=== PATIENT | female | born 1980 | race African-American/Black ===

== ENCOUNTER 2017-04-03 09:34 | Emergency (ER) | payer MEDICAID ==
[~2017-04-03] VITALS: Ht 172.7 cm; Wt 98.8 kg
[~2017-04-03 09:34] MED LIST: ALBU6.7H INH; AMIT25TA9 PO; ATEN-42 PO; HYDR-3927 PO; Ibuprofen PO; LEVO500T15 PO; LISI-604 PO; OMEP20CA10 PO; RIZA10TA26 PO
[2017-04-03] MEDS ORDERED: SODIUM CHLORIDE 0.9% 1,000 ML IV ONE ×2 (11:45→17:45)
[2017-04-03 12:13] LABS: CLARITY URINE CLEAR (CLEAR); COLOR URINE YELLOW (YELLOW); GLUCOSE URINE NEGATIVE (NEGATIVE); KETONES URINE TRACE (NEGATIVE); LEUKOCYTE ESTERASE URINE NEGATIVE (NEGATIVE); NITRITE URINE NEGATIVE (NEGATIVE); OCCULT BLOOD URINE 1+ (NEGATIVE); PROTEIN URINE NEGATIVE (NEGATIVE); SPECIFIC GRAVITY URINE 1.022 (1.005-1.030); UROBILINOGEN URINE 0.2 E.U./dL (0.2-1.0)
[2017-04-03] MEDS ORDERED: MORPHINE SULFATE 4 MG/ML CPJ (NOT FOR IM USE) IV ONE ×3 (12:30→18:45)
[2017-04-03 12:33] LABS: BASOPHILS % 1.3 % (0.0-2.0); EOSINOPHILS % 1.5 % (0.0-5.0); HEMATOCRIT. 32.2 % (36.0-48.0); HEMOGLOBIN. 10.5 g/dL (12.0-16.0); LYMPHOCYTES % 43.9 % (20.0-50.0); MEAN CORPUSCULAR HEMOGLOBIN 27.3 pg (28.0-32.0); MEAN CORPUSCULAR VOLUME 83.3 fL (81.0-99.0); MEAN PLATELET VOLUME 8.5 fl (7.4-10.4); MONOCYTES % 11.2 % (2.0-8.0); NEUTROPHILS % 42.1 % (40.0-76.0); PLATELET 296 x1000/uL (130-400); RED BLOOD CELL COUNT 3.87 mill/uL (4.2-5.4); RED CELL DISTRIBUTION WIDTH 15.5 % (11.6-14.6)
[2017-04-03 12:41] LABS: PARTIAL THROMBOPLASTIN TIME 28.2 sec (24.0-34.0); PROTHROMBIN TIME 10.7 sec
[2017-04-03 12:42] LABS: CARBON DIOXIDE 30 mEq/L (21-32); CHLORIDE 107 mEq/L (98-107)
[2017-04-03] MEDS ORDERED: ONDANSETRON HCL 4MG/2ML VIAL IV ONE ×2 (12:45→18:45)
[2017-04-03 12:52] LABS: HCG SCREEN NEGATIVE
[2017-04-03] MEDS ORDERED: VANCOMYCIN 1 G PREMIX 200 ML IV SCH (17:45)
[2017-04-03] MEDS ORDERED: PIPERACILLIN/TAZOBACTAM 3.375GM/50ML PREMIX IV ONE (17:45)
[2017-04-03] MEDS ORDERED: KETOROLAC 30MG/ML VIAL IV ONE (18:45)
[2017-04-03 21:05] VITALS: BP 135/85
== END 2017-04-03 21:05 | disposition home or self-care (01) ==
LOC: ER 12:53
DX: G06.2 Extradural and subdural abscess, unspecified (principal); M32.9 Systemic lupus erythematosus, unspecified; I10 Essential (primary) hypertension; Z90.89 Acquired absence of other organs
CPT/HCPCS: 36415; 72158; 80048; 81001; 84703; 85025; 85610; 85730; 87040; 96361; 96374; 96375; 96376; 99285; J1885; J2270; J2405; J2543; J3370; J7030

== ENCOUNTER 2017-04-23 20:47 | Emergency (ER) | payer MEDICAID ==
[~2017-04-23] VITALS: Ht 172.7 cm; Wt 82.0 kg
[~2017-04-23 20:47] MED LIST changes: -HYDR-3927 PO; +HYDR-4001 PO; -LEVO500T15 PO; +LEVO500T2 PO
[2017-04-23] MEDS ORDERED: SODIUM CHLORIDE 0.9% 1,000 ML IV ONE (21:26)
[2017-04-23] MEDS ORDERED: ONDANSETRON HCL 4MG/2ML VIAL IV STA (21:26)
[2017-04-23] MEDS ORDERED: KETOROLAC 30MG/ML VIAL IV ONE (21:30)
[2017-04-23 21:58] LABS: BASOPHILS % 1.2 % (0.0-2.0); EOSINOPHILS % 0.6 % (0.0-5.0); HEMATOCRIT. 34.2 % (36.0-48.0); HEMOGLOBIN. 11.3 g/dL (12.0-16.0); LYMPHOCYTES % 39.9 % (20.0-50.0); MEAN CORPUSCULAR HEMOGLOBIN 27.2 pg (28.0-32.0); MEAN CORPUSCULAR VOLUME 82.1 fL (81.0-99.0); MEAN PLATELET VOLUME 8.8 fl (7.4-10.4); MONOCYTES % 6.7 % (2.0-8.0); NEUTROPHILS % 51.6 % (40.0-76.0); PLATELET 339 x1000/uL (130-400); RED BLOOD CELL COUNT 4.16 mill/uL (4.2-5.4); RED CELL DISTRIBUTION WIDTH 15.2 % (11.6-14.6)
[2017-04-23 21:59] LABS: PROTHROMBIN TIME 10.8 sec
[2017-04-23 22:00] LABS: CARBON DIOXIDE 25 mEq/L (21-32); CHLORIDE 105 mEq/L (98-107)
[2017-04-23 22:02] LABS: ETHANOL BLOOD < 10 mg/dL
[2017-04-23] MEDS ORDERED: POTASSIUM CHLORIDE 20MEQ TABLET SR PO ONE (22:45)
[2017-04-23] MEDS ORDERED: LORAZEPAM 0.5MG TABLET PO ONE (22:45)
[2017-04-24 05:45] VITALS: BP 143/89
[2017-09-02] MEDS ORDERED: FERR325T6 PO (22:11)
[2017-09-02] MEDS ORDERED: ATEN50TA PO (22:11)
[2017-09-02] MEDS ORDERED: GABA-529 PO (22:11)
[2017-09-02] MEDS ORDERED: CHOL20004 PO (22:11)
[2017-09-02] MEDS ORDERED: PANT40TA4 PO (22:14)
[2017-09-02] MEDS ORDERED: DIAZ10TA4 PO (22:14)
[2017-09-02] MEDS ORDERED: HYDR4TAB4 PO (22:14)
[2017-09-02] MEDS ORDERED: LORA10TA7 PO (22:15)
== END 2017-04-24 06:04 | disposition home or self-care (01) ==
LOC: ER 22:29
DX: R10.9 Unspecified abdominal pain (principal); M54.9 Dorsalgia, unspecified; E87.6 Hypokalemia; M32.9 Systemic lupus erythematosus, unspecified; I10 Essential (primary) hypertension; R11.2 Nausea with vomiting, unspecified; G89.29 Other chronic pain; Z98.890 Other specified postprocedural states
CPT/HCPCS: 36415; 74176; 80053; 81025; 85025; 85610; 93005; 96361; 96374; 96375; 99285; G0482; J1885; J2405; J7030

== ENCOUNTER 2018-04-11 10:02 | Emergency (ER) | payer MEDICAID ==
[~2018-04-11] VITALS: Ht 172.7 cm; Wt 78.0 kg
[~2018-04-11 10:02] MED LIST changes: -ATEN-42 PO; +ATEN50TA PO; +CHOL20004 PO; +DIAZ10TA4 PO; +FERR325T6 PO; +GABA-529 PO; +HYDR4TAB4 PO; +LORA10TA7 PO; +PANT40TA4 PO
[2018-04-11] MEDS ORDERED: HYDROCODONE/ACETAMINOPHEN 5/325MG TABLET PO ONE (12:15)
[2018-04-11 12:34] VITALS: BP 129/89
== END 2018-04-11 15:52 | disposition home or self-care (01) ==
LOC: ER 15:07
DX: L03.312 Cellulitis of back [any part except buttock and flank] (principal); J45.909 Unspecified asthma, uncomplicated; M32.9 Systemic lupus erythematosus, unspecified; I10 Essential (primary) hypertension; F17.200 Nicotine dependence, unspecified, uncomplicated; F12.10 Cannabis abuse, uncomplicated; Z98.1 Arthrodesis status
CPT/HCPCS: 99283

== ENCOUNTER 2018-04-14 11:55 | Emergency (ER) | payer MEDICAID ==
[~2018-04-14] VITALS: Ht 162.6 cm; Wt 74.0 kg
[2018-04-14] MEDS ORDERED: BACITRACIN ZINC OINT UDPKT TOP ONE (12:30)
[2018-04-14] MEDS ORDERED: LIDOCAINE HCL/PF 1% 10 MG/ML 30ML VIAL INFIL ONE (12:45)
[2018-04-14] MEDS ORDERED: LIDOCAINE HCL/PF 1% 10 MG/ML 5ML VIAL IJ ONE (14:00)
[2018-04-14] MEDS ORDERED: HYDROCODONE/APAP 7.5/325MG 1 TAB TABLET PO ONE (14:45)
[2018-04-14 16:35] LABS: BASOPHILS % 0.3 % (0.0-2.0); EOSINOPHILS % 2.4 % (0.0-5.0); HEMATOCRIT. 36.1 % (36.0-48.0); HEMOGLOBIN. 11.8 g/dL (12.0-16.0); LYMPHOCYTES % 26.4 % (20.0-50.0); MEAN CORPUSCULAR HEMOGLOBIN 27.5 pg (28.0-32.0); MEAN CORPUSCULAR VOLUME 84.3 fL (81.0-99.0); MONOCYTES % 10.2 % (2.0-8.0); NEUTROPHILS % 60.7 % (40.0-76.0); PLATELET 332 x1000/uL (130-400); RED BLOOD CELL COUNT 4.29 mill/uL (4.2-5.4); RED CELL DISTRIBUTION WIDTH 14.9 % (11.6-14.6)
[2018-04-14 16:39] LABS: CHLORIDE 102 mEq/L (98-107)
[2018-04-14 16:43] LABS: HCG SCREEN NEGATIVE
[2018-04-14] MEDS ORDERED: IBUPROFEN 600MG TABLET PO ONE (19:30)
[2018-04-14 19:32] VITALS: BP 130/78
== END 2018-04-14 19:46 | disposition home or self-care (01) ==
LOC: ER 12:54
DX: L02.212 Cutaneous abscess of back [any part, except buttock and flank] (principal); I10 Essential (primary) hypertension; M32.9 Systemic lupus erythematosus, unspecified; J45.909 Unspecified asthma, uncomplicated; Z79.899 Other long term (current) drug therapy
CPT/HCPCS: 10060; 36415; 72128; 80048; 84703; 85025; 99285; J3490; X7700; Z7610

== ENCOUNTER 2018-07-23 19:05 | Emergency (ER) | payer MEDICAID ==
[~2018-07-23] VITALS: Ht 175.3 cm; Wt 77.0 kg
[2018-07-23] MEDS ORDERED: KETOROLAC 15MG/ML VIAL IM ONE (22:30)
[2018-07-23 22:52] VITALS: BP 131/70
== END 2018-07-23 22:57 | disposition home or self-care (01) ==
LOC: ER 19:05
DX: M62.838 Other muscle spasm (principal)
CPT/HCPCS: 96372; 99283; J1885

== ENCOUNTER 2018-08-05 16:51 | Inpatient (IN) | payer MEDICAID ==
[~2018-08-05] VITALS: Ht 167.6 cm; Wt 81.6 kg
[2018-08-05] MEDS ORDERED: MORPHINE SULFATE 4 MG/ML CPJ (NOT FOR IM USE) IV STA ×2 (18:15→23:25)
[2018-08-05] MEDS ORDERED: ONDANSETRON HCL 4MG/2ML INJ IV STA ×2 (18:15→23:25)
[2018-08-05] MEDS ORDERED: ACETAMINOPHEN 325MG TABLET PO STA (18:15)
[2018-08-05] MEDS ORDERED: SODIUM CHLORIDE 0.9% 1000ML BAG (SEPSIS BOLUS) IV ONE (18:15)
[2018-08-05] MEDS ORDERED: NITROGLYCERIN 0.4MG TABLET SL SL PRN (18:15)
[2018-08-05] MEDS ORDERED: LEVOFLOXACIN 750MG PREMIX 150 ML IV ONE (18:15)
[2018-08-05] MEDS ORDERED: ASPIRIN 81MG TABLET PO ONE (18:15)
[2018-08-05 20:26] LABS: HEMATOCRIT. 34.7 % (36.0-48.0); HEMOGLOBIN. 11.1 g/dL (12.0-16.0); MEAN CORPUSCULAR HEMOGLOBIN 27.7 pg (28.0-32.0); MEAN CORPUSCULAR VOLUME 86.8 fL (81.0-99.0); MEAN PLATELET VOLUME 8.7 fl (7.4-10.4); PLATELET 314 x1000/uL (130-400); RED CELL DISTRIBUTION WIDTH 14.6 % (11.6-14.6)
[2018-08-05 20:35] LABS: CHLORIDE 108 mEq/L (98-107); D-DIMER 0.46 mg/L FEU (<0.50); INR 1.1; PARTIAL THROMBOPLASTIN TIME 28.4 sec (23.4-31.0); PROTHROMBIN TIME 10.6 sec (9.1-11.1)
[2018-08-05 20:38] LABS: HCG SCREEN NEGATIVE
[2018-08-05 20:41] LABS: PLATELET ESTIMATE NORMAL
[2018-08-05 21:22] LABS: CLARITY URINE CLEAR (CLEAR); COLOR URINE YELLOW (YELLOW); KETONES URINE NEGATIVE (NEGATIVE); LEUKOCYTE ESTERASE URINE TRACE (NEGATIVE); NITRITE URINE NEGATIVE (NEGATIVE); OCCULT BLOOD URINE 3+ (NEGATIVE); PROTEIN URINE NEGATIVE (NEGATIVE); SPECIFIC GRAVITY URINE 1.012 (1.005-1.030); UROBILINOGEN URINE 0.2 E.U./dL (0.2-1.0)
[2018-08-05] MEDS ORDERED: MORPHINE SULFATE 4 MG/ML CPJ (NOT FOR IM USE) IV ONE (21:30)
[2018-08-05] MEDS ORDERED: IOHEXOL-350 100 ML BOTTLE ONE (22:11)
[2018-08-06 03:16] VITALS: BP 149/92
[2018-08-06 04:00] VITALS: BP 130/87
[2018-08-06] MEDS ORDERED: ALBUTEROL (0.083%) 2.5MG/3ML NEB HHN PRN (04:45)
[2018-08-06 06:00] VITALS: BP 134/79
[2018-08-06 06:33] LABS: BASOPHILS % 0.2 % (0.0-2.0); EOSINOPHILS % 0.3 % (0.0-5.0); HEMATOCRIT. 32.5 % (36.0-48.0); HEMOGLOBIN. 10.6 g/dL (12.0-16.0); LYMPHOCYTES % 11.9 % (20.0-50.0); MEAN CORPUSCULAR HEMOGLOBIN 28.2 pg (28.0-32.0); MEAN CORPUSCULAR VOLUME 86.6 fL (81.0-99.0); MEAN PLATELET VOLUME 8.7 fl (7.4-10.4); MONOCYTES % 6.2 % (2.0-8.0); NEUTROPHILS % 81.4 % (40.0-76.0); PLATELET 296 x1000/uL (130-400); RED BLOOD CELL COUNT 3.75 mill/uL (4.2-5.4); RED CELL DISTRIBUTION WIDTH 14.8 % (11.6-14.6)
[2018-08-06 07:01] LABS: CHLORIDE 106 mEq/L (98-107)
[2018-08-06 07:34] LABS: HDL CHOLESTEROL 55 mg/dL (40-59); LDL CHOLESTEROL 99 mg/dL (5-100)
[2018-08-06 08:00] VITALS: BP 128/89
[2018-08-06] MEDS: HYDROCODONE/ACETAMINOPHEN 10/325MG TABLET PO PRN ×2 (08:25→20:23)
[2018-08-06] MEDS: HYDROXYCHLOROQUINE SULFATE 200MG TABLET PO SCH (08:40)
[2018-08-06] MEDS: CHOLECALCIFEROL (D3) 1000 UNIT TABLET PO SCH (08:40)
[2018-08-06] MEDS: CALCIUM CARBONATE 1250MG TABLET (500MG ELEMENTAL CALCIUM) PO SCH ×2 (08:40→17:03)
[2018-08-06] MEDS: METOPROLOL TARTRATE 50MG TABLET PO SCH ×2 (08:41→20:24)
[2018-08-06] MEDS: ASPIRIN 81MG TABLET PO SCH (08:42)
[2018-08-06] MEDS: LISINOPRIL 20MG TABLET PO SCH ×2 (09:00→20:23)
[2018-08-06] MEDS: NITROGLYCERIN OINT 1GM/INCH UDPKT TD SCH ×3 (10:18→17:03)
[2018-08-06] MEDS: TIZANIDINE HCL 4MG TABLET PO PRN ×2 (10:41→20:31)
[2018-08-06 12:00] VITALS: BP 114/79
[2018-08-06] MEDS: LEVOFLOXACIN 500MG PREMIX 100 ML IV SCH (12:15)
[2018-08-06 16:00] VITALS: BP 106/73
[2018-08-06] MEDS: AMITRIPTYLINE 25MG TABLET PO SCH (20:23)
[2018-08-06] MEDS: BACLOFEN 10MG TABLET PO SCH (20:27)
[2018-08-06] MEDS ORDERED: ZOLPIDEM TARTRATE 5MG TABLET PO PRN (21:00)
[2018-08-06] MEDS ORDERED: LISINOPRIL 20MG TABLET PO SCH (21:00)
[2018-08-06] MEDS ORDERED: AMITRIPTYLINE 25MG TABLET PO SCH (21:00)
[2018-08-07 06:30] LABS: BASOPHILS % 0.3 % (0.0-2.0); EOSINOPHILS % 1.6 % (0.0-5.0); HEMATOCRIT. 31.8 % (36.0-48.0); HEMOGLOBIN. 10.5 g/dL (12.0-16.0); LYMPHOCYTES % 20.3 % (20.0-50.0); MEAN CORPUSCULAR HEMOGLOBIN 28.5 pg (28.0-32.0); MEAN CORPUSCULAR VOLUME 86.6 fL (81.0-99.0); MEAN PLATELET VOLUME 8.6 fl (7.4-10.4); NEUTROPHILS % 71.8 % (40.0-76.0); PLATELET 294 x1000/uL (130-400); RED BLOOD CELL COUNT 3.68 mill/uL (4.2-5.4); RED CELL DISTRIBUTION WIDTH 14.6 % (11.6-14.6)
[2018-08-07 07:16] LABS: CHLORIDE 106 mEq/L (98-107)
[2018-08-07 08:04] VITALS: BP 123/83
[2018-08-07] MEDS: ASPIRIN 81MG TABLET PO SCH (10:09)
[2018-08-07] MEDS: CALCIUM CARBONATE 1250MG TABLET (500MG ELEMENTAL CALCIUM) PO SCH ×2 (10:10→18:05)
[2018-08-07] MEDS: METOPROLOL TARTRATE 50MG TABLET PO SCH ×2 (10:10→20:22)
[2018-08-07] MEDS: HYDROXYCHLOROQUINE SULFATE 200MG TABLET PO SCH (10:10)
[2018-08-07] MEDS: CHOLECALCIFEROL (D3) 1000 UNIT TABLET PO SCH (10:11)
[2018-08-07] MEDS: NITROGLYCERIN OINT 1GM/INCH UDPKT TD SCH ×3 (10:11→18:05)
[2018-08-07] MEDS: LISINOPRIL 20MG TABLET PO SCH ×2 (10:11→20:32)
[2018-08-07 12:09] VITALS: BP 124/83
[2018-08-07] MEDS: TIZANIDINE HCL 4MG TABLET PO PRN ×2 (12:38→20:33)
[2018-08-07] MEDS: LEVOFLOXACIN 500MG PREMIX 100 ML IV SCH (12:38)
[2018-08-07] MEDS: MORPHINE SULFATE 4 MG/ML CPJ (NOT FOR IM USE) IV PRN ×2 (12:41→20:21)
[2018-08-07 16:09] VITALS: BP 119/75
[2018-08-07 20:00] VITALS: BP 126/82
[2018-08-07] MEDS: AMITRIPTYLINE 25MG TABLET PO SCH (20:21)
[2018-08-07] MEDS: BACLOFEN 10MG TABLET PO SCH (20:31)
[2018-08-07 22:00] VITALS: BP 119/81
[2018-08-08] VITALS: BP 102/74
[2018-08-08 04:00] VITALS: BP 116/55
[2018-08-08] MEDS: MORPHINE SULFATE 4 MG/ML CPJ (NOT FOR IM USE) IV PRN ×2 (04:53→10:18)
[2018-08-08 08:00] VITALS: BP 127/78
[2018-08-08] MEDS: HYDROXYCHLOROQUINE SULFATE 200MG TABLET PO SCH (09:00)
[2018-08-08] MEDS: ASPIRIN 81MG TABLET PO SCH (09:07)
[2018-08-08] MEDS: CHOLECALCIFEROL (D3) 1000 UNIT TABLET PO SCH ×2 (09:07→09:14)
[2018-08-08] MEDS: CALCIUM CARBONATE 1250MG TABLET (500MG ELEMENTAL CALCIUM) PO SCH (09:07)
[2018-08-08] MEDS: HYDROCODONE/ACETAMINOPHEN 10/325MG TABLET PO PRN (09:15)
[2018-08-08] MEDS: LISINOPRIL 20MG TABLET PO SCH (10:48)
[2018-08-08] MEDS: NITROGLYCERIN OINT 1GM/INCH UDPKT TD SCH ×2 (10:48→14:27)
[2018-08-08] MEDS: METOPROLOL TARTRATE 50MG TABLET PO SCH (10:48)
[2018-08-08] MEDS ORDERED: LEVOFLOXACIN 250MG TABLET PO SCH (11:00)
[2018-08-08 11:08] VITALS: BP 127/90
[2018-08-08] MEDS ORDERED: ONDANSETRON HCL 4MG/2ML INJ IV SCH (11:45)
[2018-08-08 11:59] VITALS: BP 140/85
[2018-08-12 10:06] LABS: ANA IFA Positive (.)
== END 2018-08-08 15:50 | disposition home or self-care (01) | DRG 720 ==
LOC: ER 16:51 → 5EST 23:03 → ENRESERV 08-06 01:48
PROVIDERS: ADMIT Internal Medicine; ATTEND Internal Medicine
DX: A41.9 Sepsis, unspecified organism (principal); J18.9 Pneumonia, unspecified organism; M32.9 Systemic lupus erythematosus, unspecified; M06.9 Rheumatoid arthritis, unspecified; J02.9 Acute pharyngitis, unspecified; M62.838 Other muscle spasm; I10 Essential (primary) hypertension; M41.9 Scoliosis, unspecified; G89.29 Other chronic pain; Z96.659 Presence of unspecified artificial knee joint; Z79.899 Other long term (current) drug therapy
CPT/HCPCS: 36415; 71045; 71275; 80048; 80061; 81025; 83605; 84484; 84703; 85379; 86038; 86256; 87070; 87430; 93005; 96361; 96374; 96375; 99285; J1956; J2270; J2405; J7030; J7050; Q9967

== ENCOUNTER 2018-12-30 10:07 | Emergency (ER) | payer MEDICAID ==
[~2018-12-30] VITALS: Ht 172.7 cm; Wt 81.0 kg
[~2018-12-30 10:07] MED LIST changes: -ATEN50TA PO; -DIAZ10TA4 PO; -FERR325T6 PO; -GABA-529 PO; -HYDR4TAB4 PO; -LEVO500T2 PO; -LORA10TA7 PO; -OMEP20CA10 PO; -PANT40TA4 PO; -RIZA10TA26 PO
[2018-12-30] MEDS ORDERED: ACETAMINOPHEN 325MG TABLET ONE (13:35)
[2018-12-30] MEDS ORDERED: ACETAMINOPHEN 325MG TABLET PO ONE (15:00)
[2018-12-30] MEDS ORDERED: TRAMADOL 50MG TABLET PO ONE (16:30)
[2018-12-30] MEDS ORDERED: ONDANSETRON HCL 4MG/2ML INJ IV STA (18:04)
[2018-12-30] MEDS ORDERED: SODIUM CHLORIDE 0.9% 1,000 ML IV ONE (18:04)
[2018-12-30] MEDS ORDERED: KETOROLAC 30MG/ML VIAL IV STA (18:04)
[2018-12-30 18:44] LABS: CLARITY URINE CLOUDY (CLEAR); COLOR URINE RED (YELLOW); KETONES URINE NEGATIVE (NEGATIVE); LEUKOCYTE ESTERASE URINE 1+ (NEGATIVE); NITRITE URINE NEGATIVE (NEGATIVE); OCCULT BLOOD URINE 3+ (NEGATIVE); PH URINE 5.5 (4.5-8.0); PROTEIN URINE 2+ (NEGATIVE); SPECIFIC GRAVITY URINE 1.011 (1.005-1.030); UROBILINOGEN URINE 0.2 E.U./dL (0.2-1.0)
[2018-12-30 18:50] LABS: BASOPHILS % 0.4 % (0.0-2.0); HEMATOCRIT. 33.9 % (36.0-48.0); HEMOGLOBIN. 11.1 g/dL (12.0-16.0); LYMPHOCYTES % 22.3 % (20.0-50.0); MEAN CORPUSCULAR HEMOGLOBIN 26.8 pg (28.0-32.0); MEAN CORPUSCULAR VOLUME 81.9 fL (81.0-99.0); MEAN PLATELET VOLUME 8.3 fl (7.4-10.4); MONOCYTES % 13.8 % (2.0-8.0); NEUTROPHILS % 63.5 % (40.0-76.0); PLATELET 346 x1000/uL (130-400); RED BLOOD CELL COUNT 4.14 mill/uL (4.2-5.4); RED CELL DISTRIBUTION WIDTH 15.1 % (11.6-14.6)
[2018-12-30 18:55] LABS: CHLORIDE 99 mEq/L (98-107)
[2018-12-30 18:57] LABS: INR 1.1; PROTHROMBIN TIME 10.6 sec (9.1-11.1)
[2018-12-30 21:48] VITALS: BP 98/59
== END 2018-12-30 22:05 | disposition home or self-care (01) ==
LOC: ER 10:07
DX: R50.9 Fever, unspecified (principal); R51 Headache; I10 Essential (primary) hypertension; I49.9 Cardiac arrhythmia, unspecified; Z96.659 Presence of unspecified artificial knee joint; Z98.890 Other specified postprocedural states; Z79.899 Other long term (current) drug therapy
CPT/HCPCS: 36415; 71045; 80053; 81003; 81025; 85025; 85610; 87804; 96374; 96375; 99284; J1885; J2405; J7030